=== PATIENT | male | born 2000 | race Caucasian/White ===

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

== ENCOUNTER 2019-03-09 19:17 | Emergency (ER) | payer OTHER, SELFPAY ==
[2019-03-09 19:20] VITALS: BP 119/80; PULSE 97; RESP 15; TEMP 36.9; O2SAT 98; BMI 19.2
--- NOTE | 2019-03-09 19:35 | DI.RAD.S_ITS ---
PROCEDURE: XR HAND RT MIN 3V INDICATIONS: hand injury TECHNIQUE: 3 views of the hand(s) acquired. COMPARISON: None. FINDINGS: Bones: No fractures or dislocations. Carpal bones are normally aligned. No suspicious bony lesions. Soft tissues: No suspicious soft tissue calcifications. IMPRESSION: No visualized acute fracture or dislocation. However, if clinical concern and/or pain persist, short interval imaging followup in 7-10 days is recommended, as occult injury cannot be definitively excluded. Dictated by: Iris Mcdonald M.D. on 03/09/2019 at 20:07 Approved by: Iris Mcdonald M.D. on 03/09/2019 at 20:08
--- NOTE | 2019-03-09 19:38 | ED_ITS ---
HPI - Wound/Laceration <CORTES Packer - Last Filed: 03/09/19 21:30> General Chief Complaint: Wound/Laceration Stated Complaint: Right hand laceration Time Seen by Provider: 03/09/19 19:30 Source: patient and family Mode of arrival: ambulatory Limitations: no limitations History of Present Illness HPI narrative: The patient is a 18-year-old male current smoker with history of chest pain who presents with his father for a right middle digit injury. He states he caught his finger between 2 pieces of metal and has a crush injury. He does not know his tetanus. He states he cannot move his finger. On my initial exam, the patient states that ?this is all too much for me and request to be sedated to have his finger evaluated. He has not taken anything for the pain. Related Data Previous Rx's Medication Instructions Recorded albuterol sulfate [Ventolin HFA] 1 puff INH TIDP PRN #1 ea 03/27/16 Allergies Allergy/AdvReac Type Severity Reaction Status Date / Time No Known Drug Allergies Allergy Verified 03/09/19 19:23 Review of Systems <CORTES Packer - Last Filed: 03/09/19 21:30> Review of Systems GENERAL: Denies chills, fatigue, malaise, fever, sweats. HEENT: Denies sinus pain, ear pain, sore throat, difficulty swallowing, dizziness. RESPIRATORY: Denies dyspnea, cough, wheezing, hemoptysis, sputum. CARDIOVASCULAR: Denies chest pain, palpitations, orthopnea, edema, GASTROINTESTINAL: Denies nausea, vomiting, abdominal pain, diarrhea, constipation, melena. : Denies dysuria, frequency, incontinence, hematuria, urinary retention. MUSCULOSKELETAL: See HPI SKIN: See HPI NEUROLOGIC: Denies weakness, headache, numbness, change in speech, confusion, seizures, incoordination. PSYCHIATRIC: No concerning psychosocial issues. 12 point review of systems is negative except for those stated above PFSH <CORTES Packer - Last Filed: 03/09/19 21:30> Social History Smoking Status: Current every day smoker Social History Smoking Status: Current every day smoker Exam <CORTES Packer - Last Filed: 03/09/19 21:30> Narrative Exam Narrative: GENERAL: This is a well-nourished, well-developed patient, anxious and crying HEAD: Atraumatic. Normocephalic. No temporal or scalp tenderness. EYES: Pupils equal round and reactive. Extraocular motions intact. No scleral icterus. No injection or drainage. NECK: Trachea midline. No JVD or lymphadenopathy. Supple, nontender, no meningeal signs. CARDIOVASCULAR: Regular rate and rhythm RESPIRATORY:. No increased respiratory effort. No accessory muscle use. EXTREMITIES: Injury to right middle finger as documented in skin exam. Patient has decreased flexion of right middle finger, but is able to flex and extend the finger against resistance. Capillary refill less than 2 seconds right middle finger. BACK: Nontender without deformity or crepitance. No flank tenderness. NEURO: AOx3. SKIN: 1.5 Laceration over middle joint of right middle finger. Through dermis. No obvious muscle or tendon involvement. Linear. Initial Vital Signs Initial Vital Signs: Vital Signs Temperature 98.4 F 03/09/19 19:20 Pulse Rate 97 H 03/09/19 19:20 Respiratory Rate 15 03/09/19 19:20 Blood Pressure 119/80 03/09/19 19:20 Pulse Oximetry 98 03/09/19 19:20 <Gio Banda DO - Last Filed: 03/10/19 04:01> Initial Vital Signs Initial Vital Signs: Vital Signs Temperature 98.4 F 03/09/19 19:20 Pulse Rate 97 H 03/09/19 19:20 Respiratory Rate 15 03/09/19 19:20 Blood Pressure 119/80 03/09/19 19:20 Pulse Oximetry 98 03/09/19 19:20 Procedures <PHILIPPE Packer-BC - Last Filed: 03/09/19 21:30> Laceration Repair Laceration 1: Site: hand Side (If applicable): right Size (cm): 1.5 Description: linear Depth: simple, single layer Pre-repair: wound explored, irrigated extensively (Cleansed with sterile saline, Hibiclens, chlorhexidine) and deep structures intact Skin layer closed with: nylon Size (cm): 4-0 Number of sutures: 2 Technique: simple, interrupted Nerve Block Nerve Block 1: Time out performed: Yes Local Anesthetic: lidocaine 2% Amount of anesthesia used (mL): 6 Side: right (Right middle finger) Nerve Blocks: digital Procedure Successful: Yes Patient Tolerated Procedure: Well Complications: none Course <CORTES Packer - Last Filed: 03/09/19 21:30> Orders Ordered: ED Orders 03/09/19 19:35 XR hand RT min 3V Stat Vital Signs - 8 hr 03/09/19 21:22 03/09/19 21:28 Pulse Rate 78 67 Blood Pressure 113/63 Blood Pressure [Left Arm] 113/63 Pulse Oximetry 99 96 <Gio Banda DO - Last Filed: 03/10/19 04:01> Orders Ordered: ED Orders 03/09/19 19:35 XR hand RT min 3V Stat Vital Signs - 8 hr 03/09/19 21:22 03/09/19 21:28 Pulse Rate 78 67 Blood Pressure 113/63 Blood Pressure [Left Arm] 113/63 Pulse Oximetry 99 96 MDM - Wound/Laceration <CORTES Packer - Last Filed: 03/09/19 21:30> Imaging Data Hand x-ray: Radiologist's impression: [place] [id number] XRay Report Signed Patient: Dominick Schmitz PMR#: [id number] : 2000Acct:[id number] Age/Sex: 18 / MDate of Service: 03/09/19 Loc: ED Accession Number: [id number] Procedure: XR hand RT min 3V Ordering Provider: Lexie Yeung PROCEDURE: XR HAND RT MIN 3V INDICATIONS: hand injury TECHNIQUE: 3 views of the hand(s) acquired. COMPARISON: None. FINDINGS: Bones: No fractures or dislocations. Carpal bones are normally aligned. No suspicious bony lesions. Soft tissues: No suspicious soft tissue calcifications. IMPRESSION: No visualized acute fracture or dislocation. However, if clinical concern and/or pain persist, short interval imaging followup in 7-10 days is recommended, as occult injury cannot be definitively excluded. Dictated by: Iris Mcdonald M.D. on 03/09/2019 at 20:07 Approved by: Iris Mcdonald M.D. on 03/09/2019 at 20:08 [facility] Narrative Medical decision making narrative: The patient is a 18-year-old male who presents with a chief complaint of a laceration and injury to his right middle finger. He has no fracture by x-ray. The patient repeatedly stated he was going to leave against medical advice, refused sutures in initially refuses te tanus vaccination. I did have Against Medical Advice form written up as the patient was refusing to allow me to evaluate in cleansed and closed his wound. I had many discussions with the patient that IV sedation is not appropriate for a laceration such as his. I discussed that risks outweigh benefits at this point time. The patient repeatedly argued with this. He later leg wished and was willing to do sutures. His wound closed well. I discussed at length monitoring for signs and symptoms of infection such as redness pus etc. Discussed follow-up with PCP for suture removal in 7 days. Discussed at length coming back to the ER for any acute concerns such as decreased circulation to the tip of his finger. No questions or concerns upon discharge. Discharge Plan Departure Patient Disposition: Home Clinical Impression: Laceration Discharge Date/Time: 03/09/19 21:30 Interventions: ED Discharge Assessment Last Done: 03/09/19 21:28 Instructions: How to Care for a Laceration After Repair, DI for Laceration Repair, DI for Minor Laceration Activity Restrictions/Additional Instructions: Your x-ray shows no fracture today. Please monitor your cut for signs and symptoms of infection such as redness pus and swelling. Please follow up with primary care provider when He gets back to [place]. Sutures need to come out in approximately 7 days. Please come back to the ER for any acute concerns Today we updated your tetanus. Prescriptions: No Action albuterol sulfate [Ventolin HFA] 90 MCG/PUFF HFA aerosol inhaler 1 puff INH TIDP PRNQty: 1 RF: 0 <Gio Banda, - Last Filed: 03/10/19 04:01> [facility] Attending Kathy Attestation: I was immediately available in the department for consultation. Documentation has been reviewed. I agree with assessment and plan.
[2019-03-09 21:22] VITALS: BP 113/63; PULSE 78; O2SAT 99
[2019-03-09 21:28] VITALS: BP 113/63; PULSE 67; O2SAT 96
== END 2019-03-09 21:30 | disposition home or self-care (01) ==
PROVIDERS: Emergency Provider Nurse Practitioner Family
DX: S61.212A Laceration without foreign body of right middle finger without damage to nail, initial encounter (principal); W23.1XXA Caught, crushed, jammed, or pinched between stationary objects, initial encounter
CPT/HCPCS: 12001; 64450; 73130; 99283